=== PATIENT | female | born 1930 | race Caucasian/White ===

== ENCOUNTER 2017-08-15 08:32 | Observation (INO) ==
--- NOTE | 2017-08-15 09:28 | Progress Note ---
[facility] Anesthesia Checklist - Patient Identification Patient Identification: Arm Band, Verbal (Name & ) - Structural Data Admitted From: Home Planned Operative Procedure/s: orif right ankle Consent for Planned Operative Procedure(s) Verified: Yes Verified Documents: Surgical Consent - NPO Status Verified Time NPO: 00:00 - Chart Verification Results Verified: CBC, BMP - Additional verifications Patient : No Anesthesia Reactions: No Hx Blood Transfusions: No Blood Transfusion Reaction: No Cephalosporin Allergy: No Previous Colonoscopy: No - Cardiovascular Assessment Heart Sounds: S1 & S2 Pulse Strength: Baseline Pulse Rhythm: Regular Peripheral Edema: No - Airway Assessment C-Spine Mobility Assessed: Yes TMJ Mobility Assessed: Yes Dentition: Edentulous - Neurological Assessment Level of Consciousness: Awake, Alert, Appropriate Hx Seizures: No Numbness or tingling in extremities: No - Anesthesia Plan Anesthesia Risk discussed: Yes Anesthesia Plan: Verified ASA Class: III Anesthesia Type: General [facility] Anesthesia HX I have reviewed the patient's past medical history: Yes Medical History: Reports:: Carotid Stenosis, Coronary Artery Disease, Hyperlipidemia, Hypertension Denies:: Cancer, Diabetes Mellitus Type 1, Diabetes Mellitus Type 2, Internal Pacemaker, MRSA Other Medical History: Reports: Anemia Laterality Cases: Bilateral: Other Other Surgeries: Yes: Cardiac Catheterization, Other. No: Pacemaker Amputation: Yes (left-toes) Fractures: Yes (right ankle) *Family Hx:: Unable to obtain, Coronary Artery Disease, Heart Attack, Hyperlipidemia, Hypertension, Stroke
[2017-08-15 09:36] LABS: Basophils # 0.1 K/mm3 (0-0.2); Basophils % 0.7 % (0.1-2.0); Eosinophils # 0.2 K/mm3 (0.0-0.4); Hematocrit 43.3 % (37.0-47.0); Hemoglobin 13.8 g/dL (12.2-16.2); Lymphocytes # 2.6 K/mm3 (0.7-4.5); Lymphocytes % 22.3 K/mm3 (10-50); Mean Corpuscular HGB Conc 31.9 g/dL (31.8-35.4); Mean Corpuscular Hemoglobin 30.7 pg (27.0-31.2); Mean Corpuscular Volume 96.2 fl (81-99); Mean Platelet Volume 8.9 fl (7.4-10.4); Monocytes # 0.8 K/mm3 (0.1-1.0); Monocytes % 6.4 % (1.7-9.3); Neutrophils % 68.6 % (37.0-80.0); Platelet Count 415 K/mm3 (142-424); Red Cell Distribution Width 13.7 % (11.5-17.5); White Blood Count 11.7 K/mm3 (4.8-10.8)
[2017-08-15 10:07] LABS: Anion Gap 11.5 mEq/L (5-15); Potassium 3.5 mmoL/L (3.5-5.1)
--- NOTE | 2017-08-15 13:35 | Progress Note ---
[facility] Anesthesia Record Part I Intake, IV Amount: 800 Estimated blood loss (mL): 10 Urine output (mL): 10 Blood Products used (#): none Blood Pressure: 147/67 SaO2: 92 Pulse Rate: 57 Respiratory Rate: 18 Temperature: 97.5 F Patient is:: Drowsy, Nasal O2, Stable Stable to PACU at:: 13:31
--- NOTE | 2017-08-15 13:35 | Progress Note ---
[facility] Anesthesia Record Part II Discharge Time: 14:01 Destination: Medical Surgical Department PACU nurse assessment reviewed?: Yes Patient Condition:: Good Anesthesia Complications:: None
--- NOTE | 2017-08-15 14:06 | Operative Note ---
Date of procedure: 08/15/17 Pre-op Diagnosis:: #1 comminuted trimalleolar ankle fracture, right #2 osteoporosis Post-op Diagnosis:: Same Procedure performed:: Open reduction internal fixation comminuted right trimalleolar ankle fracture Surgeon:: Devante Jones MD CARD PUNCHER:: Luke Mcallister Anesthesia: GETA, regional Estimated blood loss (mL): 5 Operative findings:: The patient is an 86-year-old female, whose several days ago, incurred an injury to her right ankle resulting in a trimalleolar ankle fracture. She apparently did not realize the ankle was broken at the time, and continue to try to ambulate on it for around 1 week prior to presenting to her family practitioner. Upon her initial orthopedic evaluation, the ankle was found to be markedly swollen and the patient underwent negative polarity therapy and edema control to help resolve the swelling. She is taken to the operating room today to provide open reduction internal fixation for this severely comminuted and osteoporotic fracture. Her operative findings showed interval healing changes. There was comminution of the diaphysis of the distal fibula. Bone quality was osteoporotic. The ankle mortise was spread and the findings were consistent with a trimalleolar ankle fracture dislocation. The medial malleolus was also quite osteoporotic and comminuted. Several fragments of bone and cartilage were retrieved from the joint itself. The significant comminution left only approximately 50% or so of the medial malleolus available for interdigitation and fixation. Operative note:: Patient was taken to the operative suite and the right lower extremity prepped and draped in the usual sterile fashion. We isolated the toes and the heel using Covan to help prevent contamination. We performed some additional scrubbing after the initial prep to help remove some dry flaky skin from the operative sites. A calf tourniquet was applied. The limb was exsanguinated and the tourniquet inflated to 250 torr. A midline incision was made over the fibula fracture utilizing the skin knife and tissues carefully retracted. Strict AO technique was utilized. We remove some very small fragments of bone and left is much soft tissue attachment as we could and carefully irrigated and used a curette to remove hematoma and inflammatory tissues to allow exposure of the fracture site. We then reduce this as anatomically as possible and were quite satisfied with the ability to bring it out to length after attaching the plate. We then applied a mid length titanium Orin distal fibula plate. The most distal screw hole was used in a locking screw placed but left loose to allow us to align the plate and use it to help reduce the fracture. This necessitated repositioning the plate and a single time. We used additional locking screws distally and nonlocking screws proximally. An adequate purchase was now obtained in the most distal screw hole of the plate so this was left occupied by screw as well as the most proximal hole. We checked in the AP lateral and mortise view to ensure we had is anatomic alignment is possible. This brought the posterior malleolar fragment into acceptable position. After the fibula was secured, we turned attention to the medial malleolus. The medial malleolus appeared to have reduced reasonably well and we elected to attempt a percutaneous fixation. 2 guide pins were placed and we checked views in all planes. We then overdrilled the most anterior wire and placed a 50 mm long partially threaded titanium screw, 4.0 mm in diameter. Purchase of the screw was almost nonexistent. Fluoroscopy after the screw was advanced showed the medial malleolar fragment to have displaced and the screw to have advanced to the level of the fracture site. We were unable to back the screw out over the guidewire due to the extreme osteoporosis and lack of purchase in the cancellus bone. We elected to open and reduce the medial malleolar fragment manually. We were able to replace the guidepin down the cannula of the screw in place the screwdriver into the screw head but still were unable to back it up. This was well inside the cancellous bone and did not block the fracture reduction and we elected to simply leave it. We manually displace the medial malleolus enough to evaluate the talus and irrigate copiously with fluid. Several small fragments of bone and cartilage were removed. It was apparent that there was significant erosion of the anterior and posterior aspects of the medial malleolar fragment presumably secondary to ambulation on the fracture. A bone bridge in the middle of the fragment was intact and fortunately could be used to help align the fragment. We aligned this as anatomically as possible and secured it with another guidepin. We elected for plate fixation of the fragment at this point. We took the smallest of the distal fibula dates from the Orin set and used bending irons to help contour it and used it allow plate fixation of the medial malleolus. We were able to cure to distal locking screws and 3 cortical screws of the fracture. We made a small percutaneous incision and using another small plate as a template, were able to apply a percutaneous screw without extending the patient's incision further. This allowed excellent fixation of this severely compromised medial malleolar fragment. We could not apply the most distal locking screw because the presence the wire. We elected to leave the wire instead of replacing it with a screw. We carefully bent the end of the wire 180 and cut it to length and then tapped it into position into the distal aspect of the medial malleolus to provide both wire fixation and plate fixation. AP lateral and mortise views show the mortise to have been restored essentially anatomically. We then placed a syndesmosis screw from the fibula into the tibia. We were able to achieve a 3 cortices fixation. Screw was placed and the mortise stress test and found to be secure. We irrigated again and began to close. Using 2-0 Vicryl's for the deep periosteum layer, 3-0 Vicryl for the subcutaneous tissues and abdullahi and nylon sutures for the skin. The tourniquet was deflated at approximately 2 hours and 15 minutes. Please see the anesthesia sheet for the exact time. Dressings were applied the patient was placed on Paul Zazueta type dressing. She was then awakened and transported to the recovery room in satisfactory condition. Condition: stable Disposition: PACU Complications:: None
--- NOTE | 2017-08-15 15:51 | Progress Note ---
Subjective Date: 08/15/17 Time: 15:47 Principal diagnosis: Trimalleolar ankle fracture dislocation,right Interval history: She underwent open reduction internal fixation for a right ankle trimalleolar fracture dislocation. She tolerated the surgery quite well. At present, she is resting comfortably enjoying the pain relief of her popliteal block. She has no sensation in her toes at this time but also no pain. Her dressing is intact. She has ice on the top of the ankle. We reposition this medially and will advise the nursing staff that she needs the ice medially and laterally as written. She has appropriate elevatardia of all today and would greatly appreciate his management of her medications.ion. We will continue antibiotics for 3 doses postoperatively. I have advised Dr. Stanford of her admission, the fact that she has had 2 doses of her beta-sven today as well as a dose last night so that she is basically had 3 doses within approximately 24 hours. PN: Obj Ex Vital signs: Temp Pulse Resp BP Pulse Ox 97.9 F 60 18 136/60 94 L 08/15/17 14:01 08/15/17 14:01 08/15/17 14:01 08/15/17 14:01 08/15/17 14:01 Progress Note: A&P Assessment and Plan for All Diagnoses:: Stable status post trimalleolar ankle fracture dislocation, open reduction internal fixation. PLAN... We will keep the patient overnight. Anticipate discharge in the morning if pain control is adequate. She would likely best be served by transfer to a rehabilitation center where she can be monitored for compliance with touchdown weightbearing and appropriate activity. In the meantime, will continue to elevate the ankle with brief periods to come down from the elevation for comfort. We will also try to sit her at bedside or in a chair. Ice and antibiotics tonight.
--- NOTE | 2017-08-15 20:10 | Progress Note ---
Internal Medicine - PN: Subj *Date: 08/15/17 *Time: 20:02 Interval history: FAMILY MEDICINE CONSULTATION This 86-year-old white female is a patient well-known to Dr. Stanford. She is now is post repair of a trimalleolar fracture. The consult has been requested to assist in medical management. She has hypertension and arteriosclerotic cardiovascular disease. 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 She had a right carotid endarterectomy August 01, 2007. Medications: Aspirin 81 mg each evening. Simvastatin 20 mg each evening. Pramipexole 0.125 mg twice a day. Plavix 75 mg once a day. Levothyroxine 50 mcg once a day. Lyrica 100 mg twice a day. Carvedilol 12.5 mg twice a day. Amlodipine 5 mg twice a day. Ferrous sulfate 325 mg once a day. Furosemide 20 mg twice a day. Allergies: Vancomycin. Exam Vital signs and Labs for Last 24 Hours: Temp Pulse Resp BP Pulse Ox 97.9 F 55 L 16 134/55 93 L 08/15/17 18:15 08/15/17 18:15 08/15/17 18:15 08/15/17 18:15 08/15/17 18:15 Laboratory Results - last 24 hr 08/15/17 09:20: WBC 11.7 H, RBC 4.50, Hgb 13.8, Hct 43.3, MCV 96.2, MCH 30.7, MCHC 31.9, RDW 13.7, Plt Count 415, MPV 8.9, Neut % (Auto) 68.6, Lymph % (Auto) 22.3, Hand % (Auto) 6.4, Eos % (Auto) 2.0, Baso % (Auto) 0.7, Neut # (Auto) 8.0 H, Lymph # (Auto) 2.6, Hand # (Auto) 0.8, Eos # (Auto) 0.2, Baso # (Auto) 0.1 08/15/17 09:54: Sodium 141, Potassium 3.5, Chloride 102, Carbon Dioxide 31, Anion Gap 11.5, BUN 23 H, Creatinine 1.13 H, Estimated Creat Clear 34, Estimated GFR 46 L, Est GFR ( Amer) 56 L, Glucose 107 H Selected Entries 08/15/17 09:41 08/15/17 13:31 08/15/17 13:41 Blood Pressure [Right Arm] 167/64 147/67 141/69 08/15/17 13:51 08/15/17 14:01 08/15/17 14:30 Blood Pressure [Right Arm] 136/60 136/60 131/62 08/15/17 14:45 08/15/17 15:00 08/15/17 15:15 Blood Pressure [Right Arm] 132/58 128/70 121/57 08/15/17 15:45 08/15/17 16:15 08/15/17 16:28 Blood Pressure [Right Arm] 128/54 117/55 117/55 08/15/17 16:45 08/15/17 17:15 08/15/17 18:15 Blood Pressure [Right Arm] 136/72 133/64 134/55 Laboratory Tests 08/15/17 08/15/17 09:20 09:54 WBC 11.7 H Hgb 13.8 Hct 43.3 BUN 23 H Creatinine 1.13 H I & O for Last 24 hours: Intake & Output 08/13/17 08/14/17 08/15/17 08/16/17 11:59 11:59 11:59 11:59 Intake Total 1235 / 1235 Output Total 0 / 0 Balance 1235 / 1235 Weight 130 lb 140 lb 3 oz - Constitutional no acute distress Comments: At the time of this postoperative exam she is stable. - *Routine HEENT Exam Head: Present: normocephalic Eye: Present: PERRL. Absent: conjunctival icterus ENT: Present: mucous membranes moist - *Routine Respiratory Exam Comments: Good air movement bilaterally. A few bibasilar rales are heard more prominent on the right than on the left. - *Routine Cardiovascular Exam Present: bradycardia - *Routine Abdominal Exam Present: soft. Absent: tenderness - *Routine Extremities Exam Comments: Her right leg is in a cast. The toes are visible and pink. - *Routine Neurological Exam Present: alert, oriented X3, normal speech Assessment and Plan (1) Trimalleolar fracture of right ankle Current visit: Yes Status: Acute Category: Medical Code(s): S82.851A - Displaced trimalleolar fracture of right lower leg, initial encounter for closed fracture (2) Status post ORIF of fracture of ankle Current visit: Yes Status: Acute Category: Medical Code(s): Z96.7 - Presence of other bone and tendon implants; Z87.81 - Personal history of (healed ) traumatic fracture (3) Hypertension Current visit: Yes Status: Acute Category: Medical Code(s): I10 - Essential (primary) hypertension (4) ASCVD (arteriosclerotic cardiovascular disease) Current visit: Yes Status: Acute Category: Medical Code(s): I25.10 - Atherosclerotic heart disease of [place] coronary artery without angina pectoris (5) Peripheral vascular disease Current visit: Yes Status: Acute Category: Medical Code(s): I73.9 - Peripheral vascular disease, unspecified (6) Status post amputation of toe of left foot Current visit: Yes Status: Acute Category: Medical Code(s): Z89.422 - Acquired absence of other left toe(s) - Assessment and plan all Dx Assessment and Plan for all problems:: Medications are reviewed. Apparently she received an extra dose of carvedilol today but I do not see any negative effects from that. Her blood pressure is stable. If she has blood pressure issues these will be addressed. Thank you for this consultation I will follow the patient with you.
[2017-08-16 07:49] VITALS: BP 140/58
--- NOTE | 2017-08-16 08:55 | Progress Note ---
Internal Medicine - PN: Subj *Date: 08/16/17 *Time: 08:52 Interval history: FAMILY MEDICINE CONSULT: Ms. Boyle seems comfortable and stable. Exam Vital signs and Labs for Last 24 Hours: Temp Pulse Resp BP Pulse Ox 97.8 F 56 L 20 140/58 92 L 08/16/17 07:48 08/16/17 07:48 08/16/17 07:48 08/16/17 07:48 08/16/17 07:48 Laboratory Results - last 24 hr 08/15/17 09:20: WBC 11.7 H, RBC 4.50, Hgb 13.8, Hct 43.3, MCV 96.2, MCH 30.7, MCHC 31.9, RDW 13.7, Plt Count 415, MPV 8.9, Neut % (Auto) 68.6, Lymph % (Auto) 22.3, [place] % (Auto) 6.4, Eos % (Auto) 2.0, Baso % (Auto) 0.7, Neut # (Auto) 8.0 H, Lymph # (Auto) 2.6, [place] # (Auto) 0.8, Eos # (Auto) 0.2, Baso # (Auto) 0.1 08/15/17 09:54: Sodium 141, Potassium 3.5, Chloride 102, Carbon Dioxide 31, Anion Gap 11.5, BUN 23 H, Creatinine 1.13 H, Estimated Creat Clear 34, Estimated GFR 46 L, Est GFR ( Amer) 56 L, Glucose 107 H I & O for Last 24 hours: Intake & Output 08/13/17 08/14/17 08/15/17 08/16/17 11:59 11:59 11:59 11:59 Intake Total 1595 / 1595 Output Total 600 / 600 Balance 995 / 995 Weight 130 lb 140 lb 3 oz - Constitutional no acute distress - *Routine HEENT Exam Eye: Present: PERRL. Absent: conjunctival icterus - *Routine Respiratory Exam Present: CTA bilaterally. Absent: respiratory distress - *Routine Cardiovascular Exam Present: RRR - *Routine Abdominal Exam Present: soft - *Routine Extremities Exam Comments: Toes of the right foot are pink Assessment and Plan (1) Trimalleolar fracture of right ankle Current visit: Yes Status: Acute Category: Medical Code(s): S82.851A - Displaced trimalleolar fracture of right lower leg, initial encounter for closed fracture (2) Status post ORIF of fracture of ankle Current visit: Yes Status: Acute Category: Medical Code(s): Z96.7 - Presence of other bone and tendon implants; Z87.81 - Personal history of (healed ) traumatic fracture (3) Hypertension Current visit: Yes Status: Acute Category: Medical Code(s): I10 - Essential (primary) hypertension (4) ASCVD (arteriosclerotic cardiovascular disease) Current visit: Yes Status: Acute Category: Medical Code(s): I25.10 - Atherosclerotic heart disease of [place] coronary artery without angina pectoris (5) Peripheral vascular disease Current visit: Yes Status: Acute Category: Medical Code(s): I73.9 - Peripheral vascular disease, unspecified (6) Status post amputation of toe of left foot Current visit: Yes Status: Acute Category: Medical Code(s): Z89.422 - Acquired absence of other left toe(s) - Assessment and plan all Dx Assessment and Plan for all problems:: Continue present treatment.
--- NOTE | 2017-08-16 10:06 | Progress Note ---
Subjective Date: 08/16/17 Time: 09:59 Principal diagnosis: Trimalleolar ankle fracture dislocation,right Interval history: Postop day #1 patient is awake alert denies pain. Exam shows the toes to be pink and viable. Capillary refill approximately 2 seconds. She still is insensate in the great toe indicating the popliteal block is still functioning. No evidence complications. She is up and sitting in a chair. Bibasilar rales reported by Dr. croft. We have encouraged to continue the incentive spirometer. PN: Obj Ex Vital signs: Temp Pulse Resp BP Pulse Ox 97.8 F 56 L 20 140/58 92 L 08/16/17 07:48 08/16/17 07:48 08/16/17 07:48 08/16/17 07:48 08/16/17 07:48 Progress Note: A&P (1) Trimalleolar fracture of right ankle Status: Acute Current Visit: Yes (2) Status post ORIF of fracture of ankle Status: Acute Current Visit: Yes (3) Hypertension Status: Acute Current Visit: Yes (4) ASCVD (arteriosclerotic cardiovascular disease) Status: Acute Current Visit: Yes (5) Peripheral vascular disease Status: Acute Current Visit: Yes (6) Status post amputation of toe of left foot Status: Acute Current Visit: Yes Assessment and Plan for All Diagnoses:: Touchdown weightbearing with physical therapy. Care management has been consulted about placement in a rehab center. Patient is somewhat reluctant but does agree to rehab center placement. Continue to elevate. Occasion management per Dr. croft and we very much appreciate his wisdom and assistance. Anticipate discharge when rehab center bed available
[2017-08-16 10:07] LABS: Anion Gap 9.8 mEq/L (5-15); Potassium 3.8 mmoL/L (3.5-5.1)
[2017-08-16 10:12] LABS: Basophils % 0.1 % (0.1-2.0); Eosinophils % 0.2 % (0.1-12.0); Hemoglobin 11.9 g/dL (12.2-16.2); Lymphocytes # 2.2 K/mm3 (0.7-4.5); Lymphocytes % 14.1 K/mm3 (10-50); Mean Corpuscular HGB Conc 31.4 g/dL (31.8-35.4); Mean Corpuscular Hemoglobin 30.5 pg (27.0-31.2); Mean Corpuscular Volume 97.1 fl (81-99); Mean Platelet Volume 9.3 fl (7.4-10.4); Monocytes # 1.2 K/mm3 (0.1-1.0); Monocytes % 7.2 % (1.7-9.3); Neutrophils # 12.5 K/mm3 (1.8-7.8); Neutrophils % 78.4 % (37.0-80.0); Platelet Count 400 K/mm3 (142-424); Red Blood Count 3.91 M/mm3 (4.20-5.40); Red Cell Distribution Width 13.6 % (11.5-17.5); White Blood Count 15.9 K/mm3 (4.8-10.8)
[2017-08-16 12:39] LABS: Lymphocytes % 8 % (10-50); Monocytes % 33 % (2-9); Neutrophils % 59 % (42-76); Total Cells Counted 100
[2017-08-16 12:40] LABS: RBC Morphology Normal
--- NOTE | 2017-12-11 10:44 | Discharge Summary ---
General - General Admission date:: 08/15/17 Discharge date: 08/19/17 HPI HPI: This dictation is taking place several months after the patient has been discharged secondary to initiation of a new medical records not identify this deficiency. This dictation is in response to a request for medical records dated 10 December at 1040 a.m. As result of problems with the medical record, the delinquent dictation was not brought to our attention. All details should be available in the main The patient was admitted for revision ankle surgery. Please see the history and physical and office notes for details. Revision surgery was accomplished and the patient kept overnight in observation status. Interestingly, she refused to be discharged the following morning and our care management staff was kind enough to obtain a long-term facility bed for her. She was transferred as soon as the bed was available. Per my recollection and per the chart, this was approximately 19 August 2017. Patient was transferred to the SNF with her usual home medications. Follow-up as scheduled. 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 When using the walker, only touch the right foot to the ground for brief periods of time. This is only to balance herself. There should be no more than 5-10 pounds of pressure on the right foot. Use a bathroom scale if needed to test how much weight you can apply to the right foot. Patient Instructions: DI for Ankle Fracture, DI for Surgical Site Infection - Follow up Plan Follow up with: Devante Jones MD [Staff Physician] - Disposition: Home Health Service Home Medications: Home Medications Medication Instructions Recorded Confirmed Type amlodipine 5 mg tablet 5 mg PO BID 08/12/17 08/30/17 History aspirin 81 mg chewable tablet 81 mg PO DAILY 08/12/17 08/30/17 History carvedilol 12.5 mg tablet 12.5 mg PO BID 08/12/17 08/30/17 History cholecalciferol (vitamin D3) 2,000 2,000 unit PO DAILY 08/12/17 08/30/17 History unit capsule clopidogrel 75 mg tablet 75 mg PO DAILY 08/12/17 08/30/17 History ferrous sulfate 325 mg (65 mg 325 mg PO DAILY tab 08/12/17 08/31/17 History iron) tablet furosemide 20 mg tablet 20 mg PO BID 08/12/17 08/30/17 History pramipexole 0.125 mg tablet 0.125 mg PO BID 08/12/17 08/31/17 History pregabalin 100 mg capsule 100 mg PO BID 08/12/17 08/30/17 History simvastatin 20 mg tablet 20 mg PO HS 08/12/17 08/31/17 History Levothyroxine Sodium 50 mcg PO DAILY 08/31/17 08/31/17 History [Levothyroxine 50mcg (0.05mg) Tab] Sulfamethoxazole/Trimethoprim 1 tab PO BID 08/31/17 08/31/17 History [Sulfamethoxazole-Tmp Ds Tablet] Prescriptions/Medication Reconciliation: New Hydrocod/Acet 5/325 mg [[place] 5/325mg tablet] 1 tab PO Q4HP PRN #20 tab PRN Reason: Moderate Pain Continue pregabalin 100 mg capsule 100 mg PO BID furosemide 20 mg tablet 20 mg PO BID ferrous sulfate 325 mg (65 mg iron) tablet 325 mg PO DAILY tab amlodipine 5 mg tablet 5 mg PO BID carvedilol 12.5 mg tablet 12.5 mg PO BID clopidogrel 75 mg tablet 75 mg PO DAILY simvastatin 20 mg tablet 20 mg PO HS aspirin 81 mg chewable tablet 81 mg PO DAILY cholecalciferol (vitamin D3) 2,000 unit capsule 2,000 unit PO DAILY pramipexole 0.125 mg tablet 0.125 mg PO BID No Action Amlodipine Besylate [Norvasc 5mg tablet] 5 mg PO BID tablet Aspirin [Aspirin 81mg chewable tab] 81 mg PO DAILY tab.chew Levothyroxine Sodium [Levothyroxine 50mcg (0.05mg) Tab] 50 mcg PO DAILY Sulfamethoxazole/Trimethoprim [Sulfamethoxazole-Tmp Ds Tablet] 1 tab PO BID
== END 2017-08-16 15:52 | disposition home health service (06) ==
LOC: 2ND → EDSTATUS 08:45 → 2ND 11:23
PROVIDERS: ADMIT Orthopaedic Surgery; ATTEND Orthopaedic Surgery

== ENCOUNTER 2017-08-30 08:35 | Observation (INO) ==
--- NOTE | 2017-08-30 14:13 | Progress Note ---
[facility] Anesthesia Checklist - Patient Identification Patient Identification: Arm Band - Structural Data Admitted From: Home Planned Operative Procedure/s: orif revision right ankle Consent for Planned Operative Procedure(s) Verified: Yes Verified Documents: Surgical Consent, History and Physical - NPO Status Verified Time NPO: 00:00 - Additional verifications Anesthesia Reactions: No - Airway Assessment C-Spine Mobility Assessed: Yes (mp2) TMJ Mobility Assessed: Yes Dentition: Edentulous - Neurological Assessment Level of Consciousness: Awake, Alert - Anesthesia Plan Anesthesia Risk discussed: Yes Anesthesia Plan: Verified ASA Class: III Anesthesia Type: General (with adductor canal and popliteal nerve blocks) [facility] Anesthesia HX I have reviewed the patient's past medical history: Yes Medical History: Reports:: Carotid Stenosis, Coronary Artery Disease, Gastroesophageal Reflux Disease(GERD), Hyperlipidemia, Hypertension Denies:: Cancer, Diabetes Mellitus Type 1, Diabetes Mellitus Type 2, Internal Pacemaker, MRSA, Seizures Other Medical History: Reports: Anemia, Hypothyroidism. Denies: Blood Transfusion Reaction Laterality Cases: Bilateral: Other Other Surgeries: Yes: Cardiac Catheterization, Other. No: Pacemaker Amputation: Yes (toe) Fractures: Yes (right ankle) *Family Hx:: Coronary Artery Disease, Heart Attack, Hyperlipidemia, Hypertension , Stroke
--- NOTE | 2017-08-30 14:14 | Progress Note ---
[facility] Anesthesia Record Part II Discharge Time: 14:40 Destination: [facility] PACU nurse assessment reviewed?: Yes Patient Condition:: Good Anesthesia Complications:: None
--- NOTE | 2017-08-30 14:14 | Progress Note ---
[facility] Anesthesia Record Part I Intake, IV Amount: 1,000 Estimated blood loss (mL): 0 Urine output (mL): 0 Blood Pressure: 144/68 SaO2: 95 Pulse Rate: 62 Respiratory Rate: 16 Temperature: 97.9 F Patient is:: Drowsy, Stable Stable to PACU at:: 14:10
[2017-08-31 07:50] VITALS: BP 143/60
--- NOTE | 2017-08-31 11:55 | Discharge Summary ---
General - General Admission date: 08/30/17 Discharge date: 08/31/17 HPI HPI: Pt scheduled for Same Day surgery and reportedly refused to leave yesterday citing inability to care for herself. Admitted in OBS status after family also refused to remove patient. Hospital Course Hospital Course: Uneventful. All pain well controlled on oral hydrocodone/acetameniphen. At time of discharge patient voices understanding that she will need transfer to [facility] and will need STRICT non-weight bearing R LE. Objective Vital signs: Temp Pulse Resp BP Pulse Ox 98.3 F 62 18 143/60 97 08/31/17 07:49 08/31/17 07:49 08/31/17 07:49 08/31/17 07:49 08/31/17 08:00 Results Completed studies during hospitalization [Text1]: Xrays show appropriate revision of ankle ORIF. Exam: Pt awake, alert, full mental capacity. Foot warm and dry. Cap refill WNL. No evident complications. Discharge Plan - Patient Discharge Instructions ACTIVITY: Other DIET: continue same diet Additional Instructions: STRICT nonweightbearing right lower extremity when ambulating. (Patient has extreme osteoporosis and has incurred a fracture dislocation of her right ankle. She has fractured in 3 different places and has multiple ligamentous injuries). When up in a chair, she may rest the right foot on the floor but SHOULD NOT bear weight on the foot when arising from the chair. She should elevate the right lower leg 12-15 inches above the height of the bed whenever possible. She may lower it as needed for comfort. She may have ice to the medial and lateral aspect of the splint on a as needed basis (for comfort ) as this is we are the incisions are located. The cold will penetrate slowly through the bulky cotton and lower the skin temperature somewhat. We would like to keep her on Bactrim DS, 1 tablet p.o. every 12 hours, for 10 days first dose 02 September 2007. We will plan on seeing her back in orthopedic clinic (Dr. Jones)here at [facility] in approximately 2 weeks. Please call if ANY questions regarding her physical therapy status.. Her office number is [phone] and the hospital rip and groove machine operator at [phone] can contact the orthopedic surgeon divisional human resources director as needed - Follow up Plan Follow up with: Devante Jones MD [Staff Physician] - Disposition: Xfer [facility] Home Medications: Home Medications Medication Instructions Recorded Confirmed Type amlodipine 5 mg tablet 5 mg PO BID 08/12/17 08/30/17 History aspirin 81 mg chewable tablet 81 mg PO DAILY 08/12/17 08/30/17 History carvedilol 12.5 mg tablet 12.5 mg PO BID 08/12/17 08/30/17 History cholecalciferol (vitamin D3) 2,000 2,000 unit PO DAILY 08/12/17 08/30/17 History unit capsule clopidogrel 75 mg tablet 75 mg PO DAILY 08/12/17 08/30/17 History ferrous sulfate 325 mg (65 mg 325 mg PO DAILY tab 08/12/17 08/31/17 History iron) tablet furosemide 20 mg tablet 20 mg PO BID 08/12/17 08/30/17 History pramipexole 0.125 mg tablet 0.125 mg PO BID 08/12/17 08/31/17 History pregabalin 100 mg capsule 100 mg PO BID 08/12/17 08/30/17 History simvastatin 20 mg tablet 20 mg PO HS 08/12/17 08/31/17 History Levothyroxine Sodium 50 mcg PO DAILY 08/31/17 08/31/17 History [Levothyroxine 50mcg (0.05mg) Tab] Sulfamethoxazole/Trimethoprim 1 tab PO BID 08/31/17 08/31/17 History [Sulfamethoxazole-Tmp Ds Tablet] Prescriptions/Medication Reconciliation: New Amlodipine Besylate [Norvasc 5mg tablet] 5 mg PO BID tablet Aspirin [Aspirin 81mg chewable tab] 81 mg PO DAILY tab.chew Continue pregabalin 100 mg capsule 100 mg PO BID furosemide 20 mg tablet 20 mg PO BID ferrous sulfate 325 mg (65 mg iron) tablet 325 mg PO DAILY tab amlodipine 5 mg tablet 5 mg PO BID carvedilol 12.5 mg tablet 12.5 mg PO BID clopidogrel 75 mg tablet 75 mg PO DAILY simvastatin 20 mg tablet 20 mg PO HS aspirin 81 mg chewable tablet 81 mg PO DAILY cholecalciferol (vitamin D3) 2,000 unit capsule 2,000 unit PO DAILY pramipexole 0.125 mg tablet 0.125 mg PO BID Hydrocod/Acet 5/325 mg [[place] 5/325mg tablet] 1 tab PO Q4HP PRN #20 tab PRN Reason: Moderate Pain Levothyroxine Sodium [Levothyroxine 50mcg (0.05mg) Tab] 50 mcg PO DAILY Sulfamethoxazole/Trimethoprim [Sulfamethoxazole-Tmp Ds Tablet] 1 tab PO BID
--- NOTE | 2017-08-31 12:39 | Progress Note ---
Subjective Date: 08/31/17 Time: 12:34 Interval history: This patient is an 86-year-old female who underwent revision open reduction internal fixation of a dislodged syndesmosis screw. She is status post ORIF approximately 2 weeks ago with trimalleolar ankle fracture dislocation. Her comorbidities include peripheral vascular disease and extreme osteoporosis. Unfortunately, despite advice, she had been weightbearing and her syndesmosis screw had dislodged and she had widening of the syndesmosis. She was taken to the operating room where she underwent revision able sedation by removal of the screw and placement of 2 tight rope fixations. We will place an additional syndesmosis screw above. Following this, the patient apparently refused to be discharged. Despite preoperative plans for same-day surgery and the patient understanding that she would not be remaining overnight, she and her family refused to leave the hospital. They cited her inability to care for herself at home. As such, she was admitted in the patient's status and our care management personnel work diligently to obtain her lodging at [facility]. On examination today the patient is awake alert no apparent distress having very minimal pain well-controlled on this single Lortab tablet that she takes. Her splint is in good condition. Her toes are warm and dry. Capillary refill around 2 seconds. She is sensate to light touch. X-rays show the mortise to be an appropriate configuration and the hardware to be in appropriate position. No evidence of complications is present. Discharge plan will call for STRICT nonweightbearing right lower extremity. I have emphasized this to the patient and her son who is in attendance. I have also explained to them how this is a very devastating fracture with multiple fracture planes and ligamentous injury worsened by the osteoporosis and worsened by the fact the patient walked on the injury for some 8 days prior to orthopedic evaluation and surgery. I have explained the prognosis is somewhat guarded. Plan is for discharge this afternoon. We will plan on seeing her back in approximately 2 weeks. PN: Obj Ex Vital signs: Temp Pulse Resp BP Pulse Ox 98.3 F 62 18 143/60 97 08/31/17 07:49 08/31/17 07:49 08/31/17 07:49 08/31/17 07:49 08/31/17 08:00
--- NOTE | 2017-08-31 12:49 | Operative Note ---
Date of procedure: 08/30/17 Pre-op Diagnosis:: #1 right ankle fracture dislocation of the trimalleolar ankle fracture approximately 2 weeks ago with failure of the syndesmosis fixation associated hardware complications #2 peripheral vascular disease #3 osteoporosis Post-op Diagnosis:: Same Procedure performed:: Revision open reduction internal fixation right ankle trimalleolar fracture dislocation Surgeon:: Devante Jones MD HEALTH TECHNICIAN:: Brandon Pierce Anesthesia: other Estimated blood loss (mL): 5 Operative findings:: This is an 86-year-old female who declined advice to enter a retirement following her original surgery some 2 weeks ago. She states that she has been compliant with wearing with the exception of her comment, "I may have put a little too much weight on it sometimes". She presented for follow-up and dislodgment of the syndesmosis screw and widening of the syndesmosis was noted. She is taken back for revision open reduction internal fixation of the syndesmosis. Hardware removal the screw is indicated as well. Operatively, she was taken to the operating room and the area scrubbed with alcohol. She was then prepped and draped in the usual sterile fashion. The heel and toes were covered with Covan to prevent any possible contamination. A well-padded calf tourniquet was placed and inflated to 2 5 0 mmHg for total tourniquet time of approximately 1 hour 40 minutes. After exsanguination and inflation, a portion of the lateral incision was made just enough to remove the syndesmosis screw. We then evaluated the syndesmosis for mobility and were able to close it down with a clamp. So as not compromised skin medially, we opened a small area to allow insertion of a ball- tipped clamp and was screw head. We then extended this incision further so that we could use an Arthrex tight rope fixation from a screw hole on the lateral plate to a screw hole medially. We removed a screw medially to allow access. We then placed the tight rope after appropriate over drilling, deployed the tight rope, and then tightened sequentially under the guidance of the production supv. The ball-tipped clamp was utilized to hold the syndesmosis in position and we assured that this was reduced in all planes. We then placed a second tight rope higher using a similar technique of going through an empty screw hole in the lateral plate. This was brought out the bone of the tibia just posterior to the medial malleolar plate. Again we deployed the tight rope and sequentially tightened and noted good fixation. Lastly a syndesmosis screw was placed much higher so the more cortical bite would be achieved. This was placed laterally to medially as well. We then irrigated and checked with C arm in multiple planes lateral, AP, mortise views, to ensure appropriate fixation and reduction of the mortise. We also had placed fixation with a roll of towels underneath the heel to prevent posterior subluxation of the talus. We then closed with 2-0 and 3-0 Vicryl for the deep tissues. Deep tissues were somewhat inflamed and stitch integrity into the tissues was compromised. We closed as best possible. We then used 3-0 nylon vertical mattress technique with deep sutures placed initially to provide deep tissue support. This was used both medially and laterally. We then applied dressings and Paul Zazueta type splint. Tourniquet was deflated. Patient was taken to the post anesthesia care unit in good condition. Operative note:: See above Condition: stable Disposition: PACU Complications:: None
== END 2017-08-31 14:15 ==
LOC: OR 08:35 → 2ND 08:35
PROVIDERS: ADMIT Orthopaedic Surgery; ATTEND Orthopaedic Surgery
CPT/HCPCS: 73600; 73610; 76000; 94761; 96374; C1713; C1776; G0378; J2405

== ENCOUNTER 2019-02-27 14:30 | Inpatient (IN) ==
--- NOTE | 2019-02-27 18:26 | Emergency Department Note ---
ED Disposition Clinical Impression: UTI (urinary tract infection) Disposition: Admitted As Inpatient Condition on Discharge: Good Referrals: Dillan Rosales MD [Primary Care Provider] - Time of Disposition: 20:20 - Critical Care Critical Care Time: No Attestation: On 02/27/19, the high probability of a clinically significant, sudden or life threatening deterioration of the following system(s) required my full and direct attention, intervention and personal management. The time I documented below is in addition to time spent performing reported procedures but includes the following listed in this critical care notation. Medical Decision Making - Medical Records Medical records reviewed: Yes: I reviewed the patient's medical records. - Chapo Inquiry Pt receiving controlled substance: No Chapo was queried for this patient: No Vital Signs: 02/27/19 14:10 02/27/19 14:25 02/27/19 15:51 Temperature 98.9 F Temperature Source Oral Pulse Rate [Left Brachial] 64 Pulse Rate [Right Brachial] 61 61 Respiratory Rate 18 16 Blood Pressure [Left Arm] 111/49 L Blood Pressure [Right Arm] 98/45 L 108/53 L Blood Pressure Mean [Left Arm] 69 Blood Pressure Mean [Right Arm] 62 71 Blood Pressure Source [Left Arm] Automatic Cuff Blood Pressure Source [Right Arm] Automatic Cuff Automatic Cuff Blood Pressure Position [Left Arm] Supine Blood Pressure Position [Right Arm] Supine Sitting 02 Sat by Pulse Oximetry 94 L 94 L 94 L Oxygen Delivery Method Nasal Cannula Nasal Cannula Room Air Oxygen Flow Rate (LPM) 2 2 02/27/19 18:33 Temperature Temperature Source Pulse Rate [Left Brachial] Pulse Rate [Right Brachial] 65 Respiratory Rate Blood Pressure [Left Arm] Blood Pressure [Right Arm] 116/60 Blood Pressure Mean [Left Arm] Blood Pressure Mean [Right Arm] 78 Blood Pressure Source [Left Arm] Blood Pressure Source [Right Arm] Automatic Cuff Blood Pressure Position [Left Arm] Blood Pressure Position [Right Arm] Supine 02 Sat by Pulse Oximetry 92 L Oxygen Delivery Method Room Air Oxygen Flow Rate (LPM) - Lab Data Lab results reviewed: Yes: I reviewed the patient's lab results. Lab Results 02/27/19 18:54: WBC 33.6 H*, RBC 4.40, Hgb 12.4, Hct 41.1, MCV 93.3, MCH 28.1, MCHC 30.2 L, RDW 16.4, Plt Count 331, MPV 9.9, Neut % (Auto) 86.4 H, Lymph % (Auto) 6.3 L, [place] % (Auto) 5.9, Eos % (Auto) 0.9, Baso % (Auto) 0.5, Neut # (Auto) 29.0 H, Lymph # (Auto) 2.1, [place] # (Auto) 2.0 H, Eos # (Auto) 0.3, Baso # (Auto) 0.2 02/27/19 18:54: Sodium 139, Potassium 4.3, Chloride 100, Carbon Dioxide 33 H, Anion Gap 10.3, BUN 36 H, Creatinine 0.97, Estimated Creat Clear 50, Estimated GFR 54 L, Est GFR ( Amer) 66, Glucose 112 H, Calcium 9.1 02/27/19 18:54: Total Bilirubin 0.8, Direct Bilirubin 0.2, Indirect Bilirubin 0.6, AST 34, ALT 20, Alkaline Phosphatase 80, Total Protein 7.1, Albumin 2.4 L 02/27/19 19:22: Urine Color Yellow, Urine Appearance Sl cloudy, Urine pH 6.0, Ur Specific [place] <= 1.005, Urine Protein Negative, Urine Glucose (UA) Negative, Urine Ketones Negative, Urine Blood Negative, Urine Nitrate Negative, Urine Bilirubin Negative, Urine Urobilinogen 0.2, Ur Leukocyte Esterase 2+ A, Urine WBC Tntc, Urine Bacteria 2+ 02/27/19 19:22: Lactate 1.2 Result diagrams: 02/27/19 18:54 02/27/19 18:54 Orders (Tests/Meds): ED MEDICATIONS Generic Name Dose Route Start Last Admin Trade Name Freq PRN Reason Stop Dose Admin Sodium Chloride 1,000 mls @ 999 mls/hr 02/27/19 18:30 02/27/19 18:39 Sod Chlor 0.9% 1000ml Bag IV 02/27/19 19:30 999 mls/hr .[id number] NERY Administration Discontinued Medications Generic Name Dose Route Start Last Admin Trade Name Freq PRN Reason Stop Dose Admin Ketorolac Tromethamine 30 mg 02/27/19 18:19 02/27/19 18:39 Toradol 30mg/Ml Vial IV 02/27/19 18:20 30 mg ONCE ONE Administration Methylprednisolone Sodium Succinate 80 mg 02/27/19 18:19 02/27/19 18:39 Methylprednisolone Sod Succinate 40mg Vial IV 02/27/19 18:20 80 mg ONCE ONE Administration ORDERS Category Date Time Status XR chest portable Stat Exams 02/27/19 19:32 Taken Complete Blood Count Auto Diff Stat Lab 02/27/19 18:54 Results Blood Culture Stat Micro 02/27/19 19:22 Received Urine Culture Stat Micro 02/27/19 19:22 Received - Physician Consults Physician Consulted: lashell Time: 20:19 Reason -: Admission General Adult HPI - General Chief complaint: PAIN Stated complaint: LEG PAIN Time Seen by Provider: 02/27/19 20:08 Mode of Arrival: EMS Source of Information: Relative, Medical Record Limitations: Physical Limitations Description of Symptoms (Recalled from ER Triage Doc. by RN): PT COMPLAINING OF PAIN IN HER LEGS. PT REPORTS THAT PAIN STARTED IN AUGUST OF THIS YEAR AND HAS GOTTEN WORSE. - History of Present Illness HPI narrative: non-specific complaints, mostly of leg pain and general malaise. Denies fever,cough,chest pain, abdominal pain, dysuria. - Related Data Home Medications Medication Instructions Recorded Confirmed aspirin 81 mg chewable tablet 81 mg PO DAILY 08/12/17 02/03/19 carvedilol 12.5 mg tablet 12.5 mg PO BID 08/12/17 02/03/19 clopidogrel 75 mg tablet 75 mg PO DAILY 08/12/17 02/03/19 pramipexole 0.125 mg tablet 0.125 mg PO BID 08/12/17 02/03/19 simvastatin 20 mg tablet 20 mg PO HS 08/12/17 02/03/19 amlodipine 5 mg tablet 5 mg PO DAILY tab 09/02/18 02/03/19 cyanocobalamin (vitamin B-12) 1,000 mcg PO DAILY 09/02/18 02/03/19 1,000 mcg capsule lactulose 10 gram/15 mL oral 20 g PO DAILY PRN ml 09/02/18 02/03/19 solution potassium chloride ER 20 mEq 20 meq PO DAILY 09/02/18 02/03/19 tablet,extended release acetaminophen 500 mg tablet 500 mg PO Q4H PRN 01/06/19 02/03/19 furosemide 40 mg tablet 40 mg PO BID 14 Days #28 tab 01/06/19 02/03/19 levothyroxine 100 mcg capsule 100 mcg PO DAILY 01/06/19 02/03/19 loratadine 10 mg tablet 10 mg PO DAILY 01/06/19 02/03/19 vitamin B complex-folic acid 0.4 1 tab PO DAILY 01/06/19 02/03/19 mg tablet cholecalciferol (vitamin D3) 1,000 1,000 unit PO DAILY 02/03/19 02/03/19 unit capsule citalopram 10 mg tablet 10 mg PO DAILY 02/03/19 02/03/19 ipratropium-albuterol 0.5 mg-3 3 ml INHALATION Q4H PRN ml 02/03/19 02/03/19 mg(2.5 mg base)/3 mL nebulization soln pregabalin 150 mg capsule 150 mg PO BID 02/03/19 02/03/19 Allergies Allergy/AdvReac Type Severity Reaction Status Date / Time clindamycin [CLINDAMYCIN] Allergy Unknown Rash Verified 02/03/19 11:35 vancomycin [VANCOMYCIN] Allergy Unknown Rash Verified 02/03/19 11:35 [facility] History - Hepatitis A Screen Drug use history?: No High risk sexual behaviors?: No History of sexually transmitted infection?: No Currently employed?: No Childcare worker?: No Do you have indoor plumbing?: Yes Do you have electricity?: Yes Attestation statement:: This patient has been screened for Hepatitis A risk factors. I have reviewed the patient's past medical history: Yes Medical History: Reports:: Carotid Stenosis, Coronary Artery Disease, Gastroesophageal Reflux Disease(GERD), Hyperlipidemia, Hypertension Denies:: Cancer, Diabetes Mellitus Type 1, Diabetes Mellitus Type 2, Internal Pacemaker, MRSA, Seizures Other Medical History: Reports: Anemia, Arthritis, Hypothyroidism, Other. Denies: Blood Transfusion Reaction Comment: History of osteomylitis. Laterality Cases: Right: Other Other Surgeries: Yes: Cardiac Catheterization, Other. No: Pacemaker Amputation: Yes (toe) Fractures: Yes Comment: right carotid endarterectomy 2007, cath report removed from chest 2013, removal of 5th digit LT foot 2015, amputation of LEFT fourth toe, 2016. - Social History Smoking Status: Never smoker Alcohol Intake: never Alcohol Intake Frequency:: other Substance Use Type: denies use Occupational Status: retired Housing: long term Household Members: spouse Family Hx:: Coronary Artery Disease, Heart Attack, Hyperlipidemia, Hypertension, Stroke ROS Obtained: Yes All systems reviewed & no additional complaints - Constitutional Constitutional: Reports system reviewed and no additional complaints, except as docu, Denies chills, Denies fever(s), Reports lethargy - Cardiovascular Cardiovascular: Denies chest pain - Respiratory Respiratory: No chest congestion, No cough - Gastrointestinal Gastrointestingal: Denies: abdominal pain - Genitourinary Female Genitourinary: Denies dysuria, Denies flank pain - Musculoskeletal Musculoskeletal: Denies decreased muscle mass, Denies joint swelling, Denies limited range of motion - Integumentary/Breasts Skin/Breast: Denies rash, Denies skin pain - Neurologic Neurologic: Denies focal weakness, Reports tingling/numbness/burning sensations, Reports other (bilateral legs) Physical Exam - General General appearance: alert, in no apparent distress - Head Head exam: atraumatic, normocephalic, normal inspection - Eye Eye exam: Present: normal appearance, PERRL, EOMI - ENT ENT exam: Present: normal exam, normal oropharynx, mucous membranes moist, TM's normal bilaterally, normal external ear exam - Neck Neck exam: Present: normal inspection, full ROM, trachea midline. Absent: meningismus, lymphadenopathy - Chest Chest inspection: Present: normal inspection, symmetric chest wall rise. Absent: tenderness - Respiratory Respiratory exam: Present: normal lung sounds bilaterally. Absent: respiratory distress - Cardiovascular Cardiovascular exam: Present: regular rate, normal rhythm. Absent: JVD - Abdominal Exam Abdominal exam: Present: soft. Absent: distention, tenderness, guarding, organomegaly - Extremities Exam Extremities exam: Present: normal inspection, full ROM, normal capillary refill. Absent: calf tenderness - Back Exam Back exam: Present: normal inspection. Absent: tenderness - Neurological Exam Neurological exam: Present: alert, other (oriented to name only). Absent: oriented X3 - Psychiatric Psychiatric exam: Present: normal affect, normal mood - Skin Skin exam: Present: warm, dry, intact, normal color - Lymphatic Lymphatic Findings: no adenopathy
[2019-02-27 19:03] LABS: Basophils # 0.2 K/mm3 (0-0.2); Basophils % 0.5 % (0.1-2.0); Eosinophils # 0.3 K/mm3 (0.0-0.4); Eosinophils % 0.9 % (0.1-12.0); Hematocrit 41.1 % (37.0-47.0); Hemoglobin 12.4 g/dL (12.2-16.2); Lymphocytes # 2.1 K/mm3 (0.7-4.5); Lymphocytes % 6.3 % (10-50); Mean Corpuscular HGB Conc 30.2 g/dL (31.8-35.4); Mean Corpuscular Volume 93.3 fl (81-99); Mean Platelet Volume 9.9 fl (7.4-10.4); Monocytes % 5.9 % (1.7-9.3); Neutrophils % 86.4 % (37.0-80.0); Platelet Count 331 K/mm3 (142-424); Red Cell Distribution Width 16.4 % (11.5-17.5)
[2019-02-27 19:10] LABS: Anion Gap 10.3 mEq/L (5-15); Calcium 9.1 mg/dL (8.5-10.1)
[2019-02-27 19:11] LABS: White Blood Count 33.6 K/mm3 (4.8-10.8)
[2019-02-27 19:36] LABS: Microscopic, Urine URINE MICROSCOPIC (MICROSCOPIC)
[2019-02-27 19:38] LABS: Appearance,Urine SL CLOUDY (Clear); Bilirubin,Urine Negative (Negative); Blood, Urine Negative (Negative); Color,Urine YELLOW (Yellow); Glucose,Urine (UA) Negative (Negative); Ketones,Urine Negative (Negative); Leukocyte Esterase,Urine 2+ (Negative); Protein,Urine Negative (Negative); Specific Gravity, Urine <= 1.005 (1.005-1.030); Urobilinogen,Urine 0.2 EU/dl (0.2)
[2019-02-27 19:39] LABS: Albumin Level 2.4 gm/dL (3.4-5.0); Bilirubin,Direct 0.2 mg/dL (0.0-0.2); Bilirubin,Indirect 0.6 mg/dL (0.0-0.9); Bilirubin,Total 0.8 mg/dL (0.2-1.0); Total Protein,Serum 7.1 gm/dL (6.4-8.2)
[2019-02-27 19:46] LABS: Bacteria,Urine 2+ /lpf; WBC,Urine TNTC #/hpf (0-3)
[2019-02-27 20:10] LABS: Hypochromasia 1+; Lymphocytes % 6 % (10-50); Monocytes % 1 % (2-9); Neutrophils % 76 % (42-76); Rouleaux 1+; Total Cells Counted 100
--- NOTE | 2019-02-27 23:41 | History & Physical Report ---
*Admission Date: 02/27/19 *Chief complaint: weakness *History of present illness: this wf was sent from [facility] for eval of weakness and change in mental status -pt was seen in the ed -non-specific complaints, mostly of leg pain and general malaise. Denies fever,cough,chest pain, abdominal pain, dysuria. pt was found to hace elevated wbc and uti and was admitted on abx and ivf [facility] History I have reviewed the patient's past medical history: Yes Medical History: Reports:: Carotid Stenosis, Coronary Artery Disease, Gastroesophageal Reflux Disease(GERD), Hyperlipidemia, Hypertension Denies:: Cancer, Diabetes Mellitus Type 1, Diabetes Mellitus Type 2, Internal Pacemaker, MRSA, Seizures *Have you ever received a pneumonia vaccine?: Yes *Have you received a flu vaccine this season?: Yes Other Medical History: Reports: Anemia, Arthritis, Hypothyroidism, Other. Denies: Blood Transfusion Reaction Laterality Cases: Right: Other Other Surgeries: Yes: Cardiac Catheterization, Other. No: Pacemaker Amputation: Yes (toe) Fractures: Yes - *Social History Smoking Status: Never smoker Alcohol Intake: never Alcohol Intake Frequency:: other Substance Use Type: denies use *Occupational Status:: retired Housing: shelter Household Members: spouse *Travel in the last 8 weeks: None Family Hx:: Coronary Artery Disease, Heart Attack, Hyperlipidemia, Hypertension, Stroke Review of Systems - Review of Systems Review of systems:: pertinent systems reviewed and negative unless documented below - Constitutional Reports fever(s), Reports lack of energy, Reports weakness - Eyes Denies change in vision - ENT Denies dizziness - *Cardiovascular Denies chest pain at rest - *Respiratory Denies cough - *Gastrointestinal Denies vomiting - *Genitourinary Denies urinary urgency - *Musculoskeletal Denies joint pain - Integumentary/Breasts Denies rash - *Neurologic Reports tingling/numbness/burning sensations, Reports other (bilateral legs), Denies localized weakness - Psychiatric Reports behavioral changes Meds Home Medications Medication Instructions Recorded Confirmed Type aspirin 81 mg chewable tablet 81 mg PO DAILY 08/12/17 02/27/19 History carvedilol 12.5 mg tablet 12.5 mg PO BID 08/12/17 02/27/19 History clopidogrel 75 mg tablet 75 mg PO DAILY 08/12/17 02/27/19 History pramipexole 0.125 mg tablet 0.125 mg PO BID 08/12/17 02/27/19 History simvastatin 20 mg tablet 20 mg PO HS 08/12/17 02/27/19 History amlodipine 5 mg tablet 5 mg PO DAILY tab 09/02/18 02/27/19 History cyanocobalamin (vitamin B-12) 1,000 mcg PO DAILY 09/02/18 02/27/19 History 1,000 mcg capsule lactulose 10 gram/15 mL oral 20 gm PO DAILY PRN ml 09/02/18 02/28/19 History solution potassium chloride ER 20 mEq 20 meq PO DAILY 09/02/18 02/27/19 History tablet,extended release acetaminophen 500 mg tablet 500 mg PO Q4H PRN 01/06/19 02/28/19 History furosemide 40 mg tablet 40 mg PO BID 14 Days #28 tab 01/06/19 02/27/19 History levothyroxine 100 mcg capsule 100 mcg PO DAILY 01/06/19 02/27/19 History loratadine 10 mg tablet 10 mg PO DAILY 01/06/19 02/27/19 History vitamin B complex-folic acid 0.4 1 tab PO DAILY 01/06/19 02/27/19 History mg tablet cholecalciferol (vitamin D3) 1,000 1,000 unit PO DAILY 02/03/19 02/27/19 History unit capsule citalopram 10 mg tablet 10 mg PO DAILY 02/03/19 02/27/19 History ipratropium-albuterol 0.5 mg-3 3 ml INHALATION Q4H PRN ml 02/03/19 02/27/19 History mg(2.5 mg base)/3 mL nebulization soln pregabalin 150 mg capsule 150 mg PO BID 02/03/19 02/27/19 History Multivit-Min/Iron Fum/Folic AC 1 each PO DAILY 02/28/19 02/28/19 History [Iliwm-Xcalzpx-Iianvssn Tablet] Allergies Allergy/AdvReac Type Severity Reaction Status Date / Time clindamycin [CLINDAMYCIN] Allergy Unknown Rash Verified 02/03/19 11:35 vancomycin [VANCOMYCIN] Allergy Unknown Rash Verified 02/03/19 11:35 Exam Vital signs and Labs for Last 24 Hours: Temp Pulse Resp BP Pulse Ox 98.3 F 65 21 120/57 L 92 L 02/27/19 21:10 02/27/19 21:10 02/27/19 21:10 02/27/19 21:10 02/27/19 21:10 Laboratory Results - last 24 hr 02/27/19 18:54: WBC 33.6 H*, RBC 4.40, Hgb 12.4, Hct 41.1, MCV 93.3, MCH 28.1, MCHC 30.2 L, RDW 16.4, Plt Count 331, MPV 9.9, Neut % (Auto) 86.4 H, Lymph % (Auto) 6.3 L, [place] % (Auto) 5.9, Eos % (Auto) 0.9, Baso % (Auto) 0.5, Neut # (Auto) 29.0 H, Lymph # (Auto) 2.1, [place] # (Auto) 2.0 H, Eos # (Auto) 0.3, Baso # (Auto) 0.2, Total Counted 100, Neutrophils % (Manual) 76, Band Neutrophils % 17.0 H, Lymphocytes % (Manual) 6 L, Monocytes % (Manual) 1 L, Platelet Estimate Normal, Hypochromasia 1+, [place] 1+ 02/27/19 18:54: Sodium 139, Potassium 4.3, Chloride 100, Carbon Dioxide 33 H, Anion Gap 10.3, BUN 36 H, Creatinine 0.97, Estimated Creat Clear 50, Estimated GFR 54 L, Est GFR ( Amer) 66, Glucose 112 H, Calcium 9.1 02/27/19 18:54: Total Bilirubin 0.8, Direct Bilirubin 0.2, Indirect Bilirubin 0.6, AST 34, ALT 20, Alkaline Phosphatase 80, Total Protein 7.1, Albumin 2.4 L 02/27/19 19:22: Urine Color Yellow, Urine Appearance Sl cloudy, Urine pH 6.0, Ur Specific [place] <= 1.005, Urine Protein Negative, Urine Glucose (UA) Negative, Urine Ketones Negative, Urine Blood Negative, Urine Nitrate Negative, Urine Bilirubin Negative, Urine Urobilinogen 0.2, Ur Leukocyte Esterase 2+ A, Urine WBC Tntc, Urine Bacteria 2+ 02/27/19 19:22: Lactate 1.2 I & O for Last 24 hours: Intake & Output 02/25/19 02/26/19 02/27/19 02/28/19 11:59 11:59 11:59 11:59 Weight 140 lb 9 oz - Constitutional no acute distress - *Routine HEENT Exam Head: Present: normocephalic Eye: Present: EOMI, PERRL ENT: Present: mucous membranes dry - *Routine Neck Exam Absent: JVD - *Routine Respiratory Exam Present: decreased breath sounds - *Routine Cardiovascular Exam Present: RRR, murmur, S4 - *Routine Abdominal Exam Present: soft - *Routine Extremities Exam Absent: calf tenderness - *Routine Skin Exam Present: intact - *Routine Neurological Exam Present: altered mental status, moving all extremities - Routine Psychiatric Exam Present: unable to assess Assessment and Plan (1) UTI (urinary tract infection) Current visit: Yes Status: Acute Qualifiers: Urinary tract infection type: site unspecified Hematuria presence: without hematuria Qualified Code(s): N39.0 - Urinary tract infection, site not specified Category: Medical Code(s): N39.0 - Urinary tract infection, site not specified (2) Leukocytosis Current visit: Yes Status: Acute Category: Medical Code(s): D72.829 - Elevated white blood cell count, unspecified
[2019-02-28 06:28] LABS: Basophils # 0.1 K/mm3 (0-0.2); Basophils % 0.1 % (0.1-2.0); Eosinophils # 0.1 K/mm3 (0.0-0.4); Eosinophils % 0.1 % (0.1-12.0); Hemoglobin 11.4 g/dL (12.2-16.2); Lymphocytes # 1.6 K/mm3 (0.7-4.5); Lymphocytes % 4.2 % (10-50); Mean Corpuscular HGB Conc 29.1 g/dL (31.8-35.4); Mean Corpuscular Volume 95.9 fl (81-99); Mean Platelet Volume 10.1 fl (7.4-10.4); Monocytes # 1.4 K/mm3 (0.1-1.0); Monocytes % 3.8 % (1.7-9.3); Neutrophils # 33.8 K/mm3 (1.8-7.8); Neutrophils % 91.7 % (37.0-80.0); Platelet Count 264 K/mm3 (142-424); Red Blood Count 4.07 M/mm3 (4.20-5.40); Red Cell Distribution Width 16.4 % (11.5-17.5)
[2019-02-28 06:33] LABS: Anion Gap 12.4 mEq/L (5-15); Calcium 8.6 mg/dL (8.5-10.1)
[2019-02-28 07:25] LABS: Lymphocytes % 6 % (10-50); Monocytes % 4 % (2-9); Neutrophils % 90 % (42-76); Total Cells Counted 100
[2019-02-28 07:26] LABS: Hypochromasia 2+
--- NOTE | 2019-02-28 09:12 | Pharmacy Consult Notes ---
[facility] Pharmacy VTE Monitoring - Patient Demographics Admission date: 02/27/19 Report Date: 02/28/19 Time: 09:12 Allergies/Adverse Reactions: Patient Allergies clindamycin [CLINDAMYCIN] Allergy (Unknown, Verified 02/03/19 11:35) Rash vancomycin [VANCOMYCIN] Allergy (Unknown, Verified 02/03/19 11:35) Rash Height: 1.63 m Weight: 65.431 kg Patient Problems: Current Active Problems UTI (urinary tract infection) (Acute) - VTE Risk Labs: VTE Related Lab Results Hgb 11.4 g/dL (12.2-16.2) L 02/28/19 06:18 Hct 39.0 % (37.0-47.0) 02/28/19 06:18 Plt Count 264 K/mm3 (142-424) 02/28/19 06:18 BUN 29 mg/dL (7-18) H 02/28/19 06:18 Creatinine 0.87 mg/dL (0.55-1.02) 02/28/19 06:18 Estimated Creat Clear 42 mL/min (50-200) 02/28/19 06:18 VTE Score: 3 VTE Risk Level: Low Risk - Prophylaxis VTE Prophylaxis Ordered?: Yes Types of VTE Prophylaxis: TEDS Knee High Location of Applied Device: Bilateral Lower Extremeties
--- NOTE | 2019-02-28 09:55 | Progress Note ---
Internal Medicine - PN: Subj *Date: 02/28/19 *Time: 09:53 Interval history: pt reports feeling better - Exam Vital signs and Labs for Last 24 Hours: Temp Pulse Resp BP Pulse Ox 97.5 F L 65 20 116/65 95 02/28/19 08:00 02/28/19 08:00 02/28/19 08:00 02/28/19 08:00 02/28/19 08:00 Laboratory Results - last 24 hr 02/27/19 18:54: WBC 33.6 H*, RBC 4.40, Hgb 12.4, Hct 41.1, MCV 93.3, MCH 28.1, MCHC 30.2 L, RDW 16.4, Plt Count 331, MPV 9.9, Neut % (Auto) 86.4 H, Lymph % (Auto) 6.3 L, [place] % (Auto) 5.9, Eos % (Auto) 0.9, Baso % (Auto) 0.5, Neut # (Auto) 29.0 H, Lymph # (Auto) 2.1, [place] # (Auto) 2.0 H, Eos # (Auto) 0.3, Baso # (Auto) 0.2, Total Counted 100, Neutrophils % (Manual) 76, Band Neutrophils % 17.0 H, Lymphocytes % (Manual) 6 L, Monocytes % (Manual) 1 L, Platelet Estimate Normal, Hypochromasia 1+, [place] 1+ 02/27/19 18:54: Sodium 139, Potassium 4.3, Chloride 100, Carbon Dioxide 33 H, Anion Gap 10.3, BUN 36 H, Creatinine 0.97, Estimated Creat Clear 50, Estimated GFR 54 L, Est GFR ( Amer) 66, Glucose 112 H, Calcium 9.1 02/27/19 18:54: Total Bilirubin 0.8, Direct Bilirubin 0.2, Indirect Bilirubin 0.6, AST 34, ALT 20, Alkaline Phosphatase 80, Total Protein 7.1, Albumin 2.4 L 02/27/19 19:22: Urine Color Yellow, Urine Appearance Sl cloudy, Urine pH 6.0, Ur Specific [place] <= 1.005, Urine Protein Negative, Urine Glucose (UA) Negative, Urine Ketones Negative, Urine Blood Negative, Urine Nitrate Negative, Urine Bilirubin Negative, Urine Urobilinogen 0.2, Ur Leukocyte Esterase 2+ A, Urine WBC Tntc, Urine Bacteria 2+ 02/27/19 19:22: Lactate 1.2 02/28/19 06:18: WBC 37.0 H*, RBC 4.07 L, Hgb 11.4 L, Hct 39.0, MCV 95.9, MCH 28.0, MCHC 29.1 L, RDW 16.4, Plt Count 264, MPV 10.1, Neut % (Auto) 91.7 H, Lymph % (Auto) 4.2 L, [place] % (Auto) 3.8, Eos % (Auto) 0.1, Baso % (Auto) 0.1, Neut # (Auto) 33.8 H, Lymph # (Auto) 1.6, [place] # (Auto) 1.4 H, Eos # (Auto) 0.1, Baso # (Auto) 0.1, Total Counted 100, Neutrophils % (Manual) 90 H, Lymphocytes % (Manual) 6 L, Monocytes % (Manual) 4, Platelet Estimate Normal, Hypochromasia 2+ 02/28/19 06:18: Sodium 142, Potassium 3.4 L D, Chloride 103, Carbon Dioxide 30, Anion Gap 12.4, BUN 29 H, Creatinine 0.87, Estimated Creat Clear 42, Estimated GFR 62, Est GFR ( Amer) 75, Glucose 132 H, Calcium 8.6 I & O for Last 24 hours: Intake & Output 02/25/19 02/26/19 02/27/19 02/28/19 11:59 11:59 11:59 11:59 Intake Total 604 / 604 Balance 604 / 604 Weight 144 lb 4 oz Microbiology Reports for the Last 24 Hours: Microbiology 02/27/19 19:22 Urine,Catheterized Urine Culture - Preliminary Gram Negative Rods - Constitutional no acute distress - *Routine HEENT Exam Head: Present: normocephalic Eye: Present: EOMI, PERRL ENT: Present: mucous membranes dry - *Routine Neck Exam Present: supple - *Routine Respiratory Exam Present: decreased breath sounds - *Routine Cardiovascular Exam Present: RRR, murmur - *Routine Abdominal Exam Present: soft - *Routine Extremities Exam Absent: calf tenderness - *Routine Skin Exam Present: intact - *Routine Neurological Exam Present: alert, CN II-XII intact - Routine Psychiatric Exam Present: unable to assess Assessment and Plan (1) UTI (urinary tract infection) Current visit: Yes Status: Acute Qualifiers: Urinary tract infection type: site unspecified Hematuria presence: without hematuria Qualified Code(s): N39.0 - Urinary tract infection, site not specified Category: Medical Code(s): N39.0 - Urinary tract infection, site not specified (2) Leukocytosis Current visit: Yes Status: Acute Category: Medical Code(s): D72.829 - Elevated white blood cell count, unspecified
--- NOTE | 2019-03-01 09:02 | Progress Note ---
Internal Medicine - PN: Subj *Date: 03/01/19 *Time: 08:53 Interval history: pt with feeling better this an - sat in chair Exam Vital signs and Labs for Last 24 Hours: Temp Pulse Resp BP Pulse Ox 97.5 F L 66 18 117/60 93 L 03/01/19 07:53 03/01/19 07:53 03/01/19 07:53 03/01/19 07:53 03/01/19 08:00 I & O for Last 24 hours: Intake & Output 02/26/19 02/27/19 02/28/19 03/01/19 11:59 11:59 11:59 11:59 Intake Total 604 / 604 2420 / 2420 Balance 604 / 604 2420 / 2420 Weight 144 lb 4 oz 147 lb 8 oz Microbiology Reports for the Last 24 Hours: Microbiology 02/27/19 19:22 Urine,Catheterized Urine Culture - Preliminary Escherichia coli - Constitutional no acute distress - *Routine HEENT Exam Head: Present: normocephalic Eye: Present: EOMI, PERRL ENT: Present: mucous membranes dry - *Routine Neck Exam Present: supple - *Routine Respiratory Exam Present: CTA bilaterally - *Routine Cardiovascular Exam Present: RRR, murmur, S4 - *Routine Abdominal Exam Present: soft - *Routine Extremities Exam Absent: calf tenderness - *Routine Skin Exam Present: intact - *Routine Neurological Exam Present: alert, oriented X3, CN II-XII intact - Routine Psychiatric Exam Present: normal affect Assessment and Plan (1) UTI (urinary tract infection) Current visit: Yes Status: Acute Qualifiers: Urinary tract infection type: site unspecified Hematuria presence: without hematuria Qualified Code(s): N39.0 - Urinary tract infection, site not specified Category: Medical Code(s): N39.0 - Urinary tract infection, site not specified (2) Leukocytosis Current visit: Yes Status: Acute Category: Medical Code(s): D72.829 - E levated white blood cell count, unspecified (3) Infection due to ESBL-producing Escherichia coli Current visit: Yes Status: Acute Category: Medical Code(s): A49.8 - Other bacterial infections of unspecified site; Z16.12 - Extended spectrum beta lactamase (ESBL) resistance
--- NOTE | 2019-03-02 12:01 | Discharge Summary ---
General - General Admission date:: 02/28/19 Discharge date: 03/02/19 HPI HPI: this wf was sent from [facility] for eval of weakness and change in mental status -pt was seen in the ed -non-specific complaints, mostly of leg pain and general malaise. Denies fever,cough,chest pain, abdominal pain, dysuria. pt was found to hace elevated wbc and uti and was admitted on abx and ivf Hospital Course Hospital Course: pt was admitted with ivf and abx with uti which was esbl positive and stablized with bp and aimee diet and cognitive status at baseline - Objective Vital signs: Temp Pulse Resp BP Pulse Ox 98.1 F 72 18 131/54 L 90 L 03/02/19 08:00 03/02/19 08:00 03/02/19 08:00 03/02/19 08:00 03/02/19 08:00 no acute distress - *Routine HEENT Exam Head: Present: normocephalic Eye: Present: EOMI, PERRL ENT: Present: mucous membranes dry - *Routine Neck Exam Present: supple - *Routine Respiratory Exam Present: CTA bilaterally - *Routine Cardiovascular Exam Present: RRR, murmur, S4 - *Routine Abdominal Exam Present: soft - *Routine Extremities Exam Present: edema. Absent: calf tenderness - *Routine Skin Exam Present: intact - *Routine Neurological Exam Present: alert, CN II-XII intact - Routine Psychiatric Exam Present: normal affect (at baseline ) Results Labs on day of discharge: Preliminary micro results at discharge 02/27/19 19:22 Blood Culture - Preliminary Blood NO GROWTH AFTER 48 HOURS 02/27/19 19:22 Blood Culture - Preliminary Blood NO GROWTH AFTER 48 HOURS DS: Diagnosis - Discharge Diagnosis (1) UTI (urinary tract infection) Status: Acute (2) Leukocytosis Status: Acute (3) Infection due to ESBL-producing Escherichia coli Status: Acute (4) UTI due to extended-spectrum beta lactamase (ESBL) producing Escherichia coli Status: Acute (5) Hypertension Status: Acute (6) ASCVD (arteriosclerotic cardiovascular disease) Status: Acute (7) Hypothyroidism (acquired) Status: Acute Discharge Plan - Patient Discharge Instructions ACTIVITY: Continue current activity DIET: continue same diet Patient Instructions: DI for Urinary Tract Infection (UTI), DI for Leukocytosis - Follow up Plan Disposition: [facility] Home Medications: Home Medications Medication Instructions Recorded Confirmed Type aspirin 81 mg chewable tablet 81 mg PO DAILY 08/12/17 02/27/19 History carvedilol 12.5 mg tablet 12.5 mg PO BID 08/12/17 02/27/19 History clopidogrel 75 mg tablet 75 mg PO DAILY 08/12/17 02/27/19 History pramipexole 0.125 mg tablet 0.125 mg PO BID 08/12/17 02/27/19 History simvastatin 20 mg tablet 20 mg PO HS 08/12/17 02/27/19 History amlodipine 5 mg tablet 5 mg PO DAILY tab 09/02/18 02/27/19 History cyanocobalamin (vitamin B-12) 1,000 mcg PO DAILY 09/02/18 02/27/19 History 1,000 mcg capsule lactulose 10 gram/15 mL oral 20 gm PO DAILY PRN ml 09/02/18 02/28/19 History solution potassium chloride ER 20 mEq 20 meq PO DAILY 09/02/18 02/27/19 History tablet,extended release acetaminophen 500 mg tablet 500 mg PO Q4H PRN 01/06/19 02/28/19 History furosemide 40 mg tablet 40 mg PO BID 14 Days #28 tab 01/06/19 02/27/19 History levothyroxine 100 mcg capsule 100 mcg PO DAILY 01/06/19 02/27/19 History loratadine 10 mg tablet 10 mg PO DAILY 01/06/19 02/27/19 History vitamin B complex-folic acid 0.4 1 tab PO DAILY 01/06/19 02/27/19 History mg tablet cholecalciferol (vitamin D3) 1,000 1,000 unit PO DAILY 02/03/19 02/27/19 History unit capsule citalopram 10 mg tablet 10 mg PO DAILY 02/03/19 02/27/19 History ipratropium-albuterol 0.5 mg-3 3 ml INHALATION Q4H PRN ml 02/03/19 02/27/19 History mg(2.5 mg base)/3 mL nebulization soln pregabalin 150 mg capsule 150 mg PO BID 02/03/19 02/27/19 History Multivit-Min/Iron Fum/Folic AC 1 each PO DAILY 02/28/19 02/28/19 History [Bmyhf-Mzocxam-Ismeaagb Tablet] Prescriptions/Medication Reconciliation: Continued carvedilol 12.5 mg tablet 12.5 mg PO BID clopidogrel 75 mg tablet 75 mg PO DAILY simvastatin 20 mg tablet 20 mg PO HS aspirin 81 mg chewable tablet 81 mg PO DAILY lactulose 10 gram/15 mL oral solution 20 gm PO DAILY PRN ml PRN Reason: constipation cyanocobalamin (vitamin B-12) 1,000 mcg capsule 1,000 mcg PO DAILY vitamin B complex-folic acid 0.4 mg tablet 1 tab PO DAILY levothyroxine 100 mcg capsule 100 mcg PO DAILY cholecalciferol (vitamin D3) 1,000 unit capsule 1,000 unit PO DAILY ipratropium-albuterol 0.5 mg-3 mg(2.5 mg base)/3 mL nebulization soln 3 ml INHALATION Q4H PRN ml PRN Reason: wheezing citalopram 10 mg tablet 10 mg PO DAILY pregabalin 150 mg capsule 150 mg PO BID pramipexole 0.125 mg tablet 0.125 mg PO BID amlodipine 5 mg tablet 5 mg PO DAILY tab loratadine 10 mg tablet 10 mg PO DAILY Multivit-Min/Iron Fum/Folic AC [Qspis-Zvktixh-Llbpceke Tablet] 1 each PO DAILY Discontinued potassium chloride ER 20 mEq tablet,extended release 20 meq PO DAILY furosemide 40 mg tablet 40 mg PO BID 14 Days #28 tab acetaminophen 500 mg tablet 500 mg PO Q4H PRN PRN Reason: pain/fever - Problem Reconciliation Problems Reviewed?: Yes
== END 2019-03-02 15:59 | DRG 690 ==
LOC: 2ND 14:30 → ER 14:30 → 2ND 21:05
PROVIDERS: ADMIT Emergency Medicine; ATTEND Emergency Medicine
CPT/HCPCS: 36415; 71010; 71045; 80048; 80076; 81001; 83605; 85007; 85025; 87040; 87086; 87088; 87186; 96365; 96375; 99285; G0378; J1335